=== PATIENT | male | born 1955 | race Caucasian/White ===

== ENCOUNTER 2016-11-30 08:00 | Outpatient (CLI) | payer BC, OTHER ==
[2016-11-30 14:48] LABS: ALBUMIN/GLOBULIN RATIO 1.5 (1.0-2.2); BILIRUBIN,TOTAL 1.1 mg/dL (0.2-1.0); BUN - BLOOD UREA NITROGEN 21 mg/dL (6-20); CALCIUM 9.5 mg/dL (8.5-10.3); CARBON DIOXIDE - CO2 28 mmol/L (21-32); CHLORIDE 103 mmol/L (101-111); CHOL/HDL RATIO 4.5 (<5.0); CHOLESTEROL 186 mg/dL; GFR - MDRD 76 (>89); GLUCOSE 100 mg/dL (70-100); HDL CHOLESTEROL 41 mg/dL; LDL/HDL RATIO 2.9 (<3.6); POTASSIUM 4.2 mmol/L (3.5-5.0); SODIUM 139 mmol/L (135-145); TOTAL PROTEIN 7.3 g/dL (6.7-8.2); TRIGLYCERIDES 141 mg/dL; VLDL CHOLESTEROL 28 mg/dL
== END 2016-11-30 08:01 | disposition home or self-care (01) ==
LOC: LAB.WCP 08:00
PROVIDERS: ATTEND Family Medicine
DX: Z00.00 Encounter for general adult medical examination without abnormal findings (principal); E78.5 Hyperlipidemia, unspecified; Z12.5 Encounter for screening for malignant neoplasm of prostate
CPT/HCPCS: 36415; 80053; 80061; 84153

== ENCOUNTER 2017-12-21 08:10 | Outpatient (CLI) | payer OTHER ==
[2017-12-21 12:32] LABS: BASOPHILS # (AUTO) 0.1 10^3/uL (0.0-0.1); BASOPHILS % (AUTO) 1.1 %; EOSINOPHILS # (AUTO) 0.4 10^3/uL (0.0-0.7); EOSINOPHILS % (AUTO) 6.4 %; HGB - HEMOGLOBIN 15.9 g/dL (14.0-18.0); LYMPHOCYTES # (AUTO) 2.2 10^3/uL (1.5-3.5); LYMPHOCYTES % (AUTO) 39.6 %; MEAN CORPUSCULAR HGB CONC 35.2 g/dL (32.0-36.0); MEAN CORPUSCULAR VOLUME 87.9 fL (80.0-94.0); MEAN PLATELET VOLUME 8.7 fL (7.4-11.4); MONOCYTES # (AUTO) 0.6 10^3/uL (0.0-1.0); MONOCYTES % (AUTO) 10.6 %; NEUTROPHILS # (AUTO) 2.4 10^3/uL (1.5-6.6); NEUTROPHILS % (AUTO) 42.3 %; PLT - PLATELET COUNT 239 10^3/uL (130-450); RED BLOOD COUNT 5.12 10^6/uL (4.70-6.10); RED CELL DISTRIBUTION WIDTH 12.8 % (12.0-15.0); WHITE BLOOD COUNT 5.7 x10^3/uL (4.8-10.8)
[2017-12-21 13:08] LABS: ALBUMIN 4.4 g/dL (3.2-5.5); ALBUMIN/GLOBULIN RATIO 1.5 (1.0-2.2); ALKALINE PHOSPHATASE 71 IU/L (42-121); ALT ALANINE AMINOTRANSFERASE 49 IU/L (10-60); AST ASPARTATE AMINOTRANSFERASE 38 IU/L (10-42); BILIRUBIN,TOTAL 0.9 mg/dL (0.2-1.0); BUN - BLOOD UREA NITROGEN 17 mg/dL (6-20); CALCIUM 9.6 mg/dL (8.5-10.3); CARBON DIOXIDE - CO2 29 mmol/L (21-32); CHLORIDE 100 mmol/L (101-111); CHOL/HDL RATIO 5.1 (<5.0); CHOLESTEROL 199 mg/dL; GFR - MDRD 75 (>89); GLUCOSE 107 mg/dL (70-100); HDL CHOLESTEROL 39 mg/dL; LDL CHOLESTEROL,CALCULATED 113 mg/dL; LDL/HDL RATIO 2.9 (<3.6); SODIUM 137 mmol/L (135-145); TOTAL PROTEIN 7.3 g/dL (6.7-8.2); VLDL CHOLESTEROL 47 mg/dL
== END 2017-12-21 08:11 | disposition home or self-care (01) ==
LOC: LAB.WCP 08:10
PROVIDERS: ATTEND Family Medicine
DX: Z00.00 Encounter for general adult medical examination without abnormal findings (principal); E78.5 Hyperlipidemia, unspecified; Z12.5 Encounter for screening for malignant neoplasm of prostate
CPT/HCPCS: 36415; 80053; 80061; 83721; 84153; 85025

== ENCOUNTER 2018-12-26 08:00 | Outpatient (CLI) | payer OTHER ==
[2018-12-26 13:02] LABS: BASOPHILS # (AUTO) 0.1 10^3/uL (0.0-0.1); BASOPHILS % (AUTO) 0.9 %; EOSINOPHILS # (AUTO) 0.3 10^3/uL (0.0-0.7); EOSINOPHILS % (AUTO) 6.1 %; HGB - HEMOGLOBIN 15.4 g/dL (14.0-18.0); LYMPHOCYTES # (AUTO) 2.1 10^3/uL (1.5-3.5); LYMPHOCYTES % (AUTO) 37.8 %; MEAN CORPUSCULAR HEMOGLOBIN 30.7 pg (27.0-31.0); MEAN CORPUSCULAR HGB CONC 34.1 g/dL (32.0-36.0); MEAN PLATELET VOLUME 10.6 fL (7.4-11.4); MONOCYTES # (AUTO) 0.6 10^3/uL (0.0-1.0); NEUTROPHILS # (AUTO) 2.4 10^3/uL (1.5-6.6); PLT - PLATELET COUNT 243 10^3/uL (130-450); RED BLOOD COUNT 5.01 10^6/uL (4.70-6.10); WHITE BLOOD COUNT 5.5 x10^3/uL (4.8-10.8)
[2018-12-26 13:14] LABS: ALBUMIN 4.2 g/dL (3.2-5.5); ALBUMIN/GLOBULIN RATIO 1.5 (1.0-2.2); ALKALINE PHOSPHATASE 61 IU/L (42-121); ALT ALANINE AMINOTRANSFERASE 41 IU/L (10-60); AST ASPARTATE AMINOTRANSFERASE 32 IU/L (10-42); BILIRUBIN,TOTAL 0.9 mg/dL (0.2-1.0); BUN - BLOOD UREA NITROGEN 15 mg/dL (6-20); CALCIUM 9.2 mg/dL (8.5-10.3); CARBON DIOXIDE - CO2 29 mmol/L (21-32); CHLORIDE 104 mmol/L (101-111); CHOL/HDL RATIO 4.8 (<5.0); CHOLESTEROL 197 mg/dL; GFR - MDRD 75 (>89); GLUCOSE 109 mg/dL (70-100); HDL CHOLESTEROL 41 mg/dL; LDL CHOLESTEROL,CALCULATED 131 mg/dL; LDL/HDL RATIO 3.2 (<3.6); SODIUM 140 mmol/L (135-145); VLDL CHOLESTEROL 25 mg/dL
== END 2018-12-26 08:01 | disposition home or self-care (01) ==
LOC: LAB.WCP 08:00
PROVIDERS: ATTEND Family Medicine
DX: E78.5 Hyperlipidemia, unspecified (principal); Z12.5 Encounter for screening for malignant neoplasm of prostate
CPT/HCPCS: 36415; 80053; 80061; 83721; 84153; 85025

== ENCOUNTER 2019-02-17 09:22 | Day surgery (SDC) | payer OTHER ==
[2019-02-17] MEDS ORDERED: MIDAZOLAM 2 MG/2 ML VIAL IVP ONE (09:23)
[2019-02-17] MEDS ORDERED: fentaNYL 250 MCG/5 ML VIAL IVP ONE (09:23)
[2019-02-17] MEDS ORDERED: LACTATED RINGERS 1,000 ML IV ONE (09:31)
[2019-02-17 15:24] VITALS: BP 118/76
== END 2019-02-17 09:23 | disposition home or self-care (01) ==
LOC: SDS 09:22
PROVIDERS: ATTEND Internal Medicine Gastroenterology
PROC: 0DBN8ZZ Excision of Sigmoid Colon, Via Natural or Artificial Opening Endoscopic (ICD-10-PCS; 2019-02-17)
PROC: 0DBK8ZZ Excision of Ascending Colon, Via Natural or Artificial Opening Endoscopic (ICD-10-PCS; principal; 2019-02-17 12:15)
DX: Z12.11 Encounter for screening for malignant neoplasm of colon (principal); K63.5 Polyp of colon; Z79.82 Long term (current) use of aspirin
CPT/HCPCS: 45380; J3010; J7120

== ENCOUNTER 2019-05-15 09:01 | Outpatient (CLI) | payer BC, OTHER ==
--- NOTE | 2019-05-15 14:35 | XRAY Report ---
Reason: RIGHT ANKLE JOINT PAIN Procedure Date: 05/15/2019 Accession Number: [id number] / [id number] Procedure: WCP - Ankle 3 View RT CPT Code: Final Report FULL RESULT: EXAM: RIGHT ANKLE RADIOGRAPHY EXAM DATE: 05/15/2019 09:01 AM. CLINICAL HISTORY: Chronic right ankle pain. The patient does not recall an episode of trauma. COMPARISON: None. TECHNIQUE: 3 views. FINDINGS: Bones: Normal bone mineralization. No fractures or bone lesions. Plantar calcaneal spur. Joints: Normal. No effusion. No subluxations. The ankle mortise is normally aligned. Soft Tissues: Normal. No soft tissue swelling. IMPRESSION: 1. Plantar calcaneal spur. 2. Normal right ankle radiography. [facility]
== END 2019-05-15 23:59 | disposition home or self-care (01) ==
LOC: DI.WCP 09:01
PROVIDERS: ATTEND Nurse Practitioner Family
DX: M77.31 Calcaneal spur, right foot (principal)

== ENCOUNTER 2020-01-12 09:19 | Outpatient (CLI) | payer BC ==
[2020-01-12 12:18] LABS: BASOPHILS # (AUTO) 0.1 10^3/uL (0.0-0.1); BASOPHILS % (AUTO) 0.8 %; EOSINOPHILS # (AUTO) 0.4 10^3/uL (0.0-0.7); EOSINOPHILS % (AUTO) 7.3 %; HGB - HEMOGLOBIN 14.7 g/dL (14.0-18.0); LYMPHOCYTES # (AUTO) 2.4 10^3/uL (1.5-3.5); LYMPHOCYTES % (AUTO) 39.2 %; MEAN CORPUSCULAR HGB CONC 34.4 g/dL (32.0-36.0); MEAN CORPUSCULAR VOLUME 90.1 fL (80.0-94.0); MEAN PLATELET VOLUME 10.6 fL (7.4-11.4); MONOCYTES # (AUTO) 0.7 10^3/uL (0.0-1.0); MONOCYTES % (AUTO) 11.5 %; NEUTROPHILS # (AUTO) 2.5 10^3/uL (1.5-6.6); PLT - PLATELET COUNT 231 10^3/uL (130-450); RED BLOOD COUNT 4.74 10^6/uL (4.70-6.10); RED CELL DISTRIBUTION WIDTH 11.9 % (12.0-15.0)
[2020-01-12 12:49] LABS: ALBUMIN 4.1 g/dL (3.2-5.5); ALBUMIN/GLOBULIN RATIO 1.4 (1.0-2.2); ALKALINE PHOSPHATASE 57 IU/L (42-121); ALT ALANINE AMINOTRANSFERASE 44 IU/L (10-60); AST ASPARTATE AMINOTRANSFERASE 34 IU/L (10-42); BILIRUBIN,TOTAL 0.9 mg/dL (0.2-1.0); BUN - BLOOD UREA NITROGEN 27 mg/dL (6-20); CALCIUM 9.2 mg/dL (8.5-10.3); CARBON DIOXIDE - CO2 25 mmol/L (21-32); CHLORIDE 108 mmol/L (101-111); CHOL/HDL RATIO 4.9 (<5.0); CHOLESTEROL 180 mg/dL; CREATININE 0.9 mg/dL (0.6-1.2); GLUCOSE 110 mg/dL (70-100); HDL CHOLESTEROL 37 mg/dL; LDL CHOLESTEROL,CALCULATED 112 mg/dL; SODIUM 140 mmol/L (135-145); TOTAL PROTEIN 7.1 g/dL (6.7-8.2); VLDL CHOLESTEROL 31 mg/dL
== END 2020-01-12 23:59 | disposition home or self-care (01) ==
LOC: LAB.WCP 09:19
PROVIDERS: ATTEND Family Medicine
DX: I10 Essential (primary) hypertension (principal); E78.5 Hyperlipidemia, unspecified; Z12.5 Encounter for screening for malignant neoplasm of prostate
CPT/HCPCS: 36415; 80053; 80061; 83721; 84153; 84443; 85025

== ENCOUNTER 2020-07-12 07:00 | Outpatient (CLI) | payer BC ==
--- NOTE | 2020-07-12 15:37 | XRAY Report ---
PROCEDURE: Knee 3 View RT INDICATIONS: SPRAIN OF UNSPECIFIED SITE OF R KNEE TECHNIQUE: 3 views of the right knee(s) were acquired. COMPARISON: None. FINDINGS: Bones: No fractures or dislocations. No suspicious bony lesions. Moderate medial and mild to moder ate patellofemoral compartment narrowing. Minimal periarticular ossicles are present. No erosions. Soft tissues: Moderate joint effusion. No suspicious soft tissue calcifications. IMPRESSION: Medial and patellofemoral arthritic change. Reviewed by: Luciana Tyler MD on 07/12/2020 3:36 PM PDT Approved by: Luciana Tyler MD on 07/12/2020 3:36 PM PDT Station ID: [id number]
== END 2020-07-12 23:59 | disposition home or self-care (01) ==
LOC: DI.N 07:00
PROVIDERS: ATTEND Nurse Practitioner
DX: M17.11 Unilateral primary osteoarthritis, right knee (principal)

== ENCOUNTER 2021-01-07 08:00 | Outpatient (CLI) | payer BC ==
[2021-01-07 12:21] LABS: BASOPHILS # (AUTO) 0.1 10^3/uL (0.0-0.1); BASOPHILS % (AUTO) 0.8 %; EOSINOPHILS # (AUTO) 0.3 10^3/uL (0.0-0.7); EOSINOPHILS % (AUTO) 4.6 %; HCT - HEMATOCRIT 43.5 % (42.0-52.0); HGB - HEMOGLOBIN 14.5 g/dL (14.0-18.0); LYMPHOCYTES # (AUTO) 2.3 10^3/uL (1.5-3.5); LYMPHOCYTES % (AUTO) 39.2 %; MEAN CORPUSCULAR HEMOGLOBIN 30.5 pg (27.0-31.0); MEAN CORPUSCULAR HGB CONC 33.3 g/dL (32.0-36.0); MEAN CORPUSCULAR VOLUME 91.4 fL (80.0-94.0); MEAN PLATELET VOLUME 10.4 fL (7.4-11.4); MONOCYTES # (AUTO) 0.7 10^3/uL (0.0-1.0); NEUTROPHILS # (AUTO) 2.5 10^3/uL (1.5-6.6); NEUTROPHILS % (AUTO) 43.1 %; PLT - PLATELET COUNT 247 10^3/uL (130-450); RED BLOOD COUNT 4.76 10^6/uL (4.70-6.10); RED CELL DISTRIBUTION WIDTH 12.1 % (12.0-15.0); WHITE BLOOD COUNT 5.9 x10^3/uL (4.8-10.8)
[2021-01-07 13:34] LABS: THYROID STIMULATING HORMONE 3.69 uIU/mL (0.34-5.60)
[2021-01-07 13:54] LABS: ALBUMIN 4.6 g/dL (3.2-5.5); ALBUMIN/GLOBULIN RATIO 1.6 (1.0-2.2); ALKALINE PHOSPHATASE 58 IU/L (42-121); ALT ALANINE AMINOTRANSFERASE 28 IU/L (10-60); AST ASPARTATE AMINOTRANSFERASE 27 IU/L (10-42); BILIRUBIN,TOTAL 0.9 mg/dL (0.2-1.0); BUN - BLOOD UREA NITROGEN 30 mg/dL (6-20); CALCIUM 9.8 mg/dL (8.5-10.3); CARBON DIOXIDE - CO2 27 mmol/L (21-32); CHLORIDE 105 mmol/L (101-111); CHOL/HDL RATIO 4.3 (<5.0); CHOLESTEROL 198 mg/dL; GFR - MDRD 75 (>89); GLUCOSE 109 mg/dL (70-100); HDL CHOLESTEROL 46 mg/dL; LDL CHOLESTEROL,CALCULATED 136 mg/dL; POTASSIUM 4.7 mmol/L (3.5-5.0); SODIUM 142 mmol/L (135-145); TOTAL PROTEIN 7.5 g/dL (6.7-8.2); TRIGLYCERIDES 82 mg/dL; VLDL CHOLESTEROL 16 mg/dL
== END 2021-01-07 23:59 | disposition home or self-care (01) ==
LOC: LAB.WCP 08:00
PROVIDERS: ATTEND Family Medicine
DX: I10 Essential (primary) hypertension (principal); E78.5 Hyperlipidemia, unspecified; Z12.5 Encounter for screening for malignant neoplasm of prostate
CPT/HCPCS: 36415; 80053; 80061; 83721; 84153; 84443; 85025

== ENCOUNTER 2021-08-20 08:00 | Outpatient (CLI) | payer BC | END 2021-08-20 23:59 | disposition home or self-care (01) | LOC: LAB.S 08:00 | PROVIDERS: ATTEND Emergency Medicine | DX: M70.22 Olecranon bursitis, left elbow (principal) | CPT/HCPCS: 87070; 87181; 87205 ==

== ENCOUNTER 2022-01-13 08:27 | Outpatient (CLI) | payer OTHER ==
[2022-01-13 12:28] LABS: BASOPHILS # (AUTO) 0.1 10^3/uL (0.0-0.1); BASOPHILS % (AUTO) 0.9 %; EOSINOPHILS # (AUTO) 0.7 10^3/uL (0.0-0.7); EOSINOPHILS % (AUTO) 8.6 %; HCT - HEMATOCRIT 44.7 % (42.0-52.0); LYMPHOCYTES # (AUTO) 2.6 10^3/uL (1.5-3.5); LYMPHOCYTES % (AUTO) 33.5 %; MEAN CORPUSCULAR HEMOGLOBIN 29.8 pg (27.0-31.0); MEAN CORPUSCULAR HGB CONC 33.6 g/dL (32.0-36.0); MEAN CORPUSCULAR VOLUME 88.7 fL (80.0-94.0); MEAN PLATELET VOLUME 10.2 fL (7.4-11.4); MONOCYTES # (AUTO) 0.9 10^3/uL (0.0-1.0); MONOCYTES % (AUTO) 11.9 %; NEUTROPHILS # (AUTO) 3.4 10^3/uL (1.5-6.6); NEUTROPHILS % (AUTO) 44.8 %; PLT - PLATELET COUNT 293 10^3/uL (130-450); RED BLOOD COUNT 5.04 10^6/uL (4.70-6.10); WHITE BLOOD COUNT 7.7 x10^3/uL (4.8-10.8)
[2022-01-13 13:04] LABS: ALBUMIN 4.2 g/dL (3.2-5.5); ALBUMIN/GLOBULIN RATIO 1.4 (1.0-2.2); ALKALINE PHOSPHATASE 63 IU/L (42-121); ALT ALANINE AMINOTRANSFERASE 34 IU/L (10-60); AST ASPARTATE AMINOTRANSFERASE 27 IU/L (10-42); BILIRUBIN,TOTAL 0.7 mg/dL (0.2-1.0); BUN - BLOOD UREA NITROGEN 22 mg/dL (6-20); CALCIUM 9.7 mg/dL (8.5-10.3); CARBON DIOXIDE - CO2 28 mmol/L (21-32); CHLORIDE 104 mmol/L (101-111); CHOLESTEROL 173 mg/dL; GFR - MDRD 74 (>89); GLUCOSE 110 mg/dL (70-100); HDL CHOLESTEROL 43 mg/dL; LDL CHOLESTEROL,CALCULATED 109 mg/dL; LDL/HDL RATIO 2.5 (<3.6); POTASSIUM 4.5 mmol/L (3.5-5.0); SODIUM 140 mmol/L (135-145); TOTAL PROTEIN 7.1 g/dL (6.7-8.2); TRIGLYCERIDES 103 mg/dL; VLDL CHOLESTEROL 21 mg/dL
[2022-01-13 13:11] LABS: ESTIMATED AVERAGE GLUCOSE 123 mg/dL (70-100); HEMOGLOBIN A1c% 5.9 % (4.27-6.07)
== END 2022-01-13 08:28 | disposition home or self-care (01) ==
LOC: LAB.N 08:27
PROVIDERS: ATTEND Nurse Practitioner Family
DX: I10 Essential (primary) hypertension (principal); Z12.5 Encounter for screening for malignant neoplasm of prostate; E78.5 Hyperlipidemia, unspecified; R73.01 Impaired fasting glucose
CPT/HCPCS: 36415; 80053; 80061; 83036; 83721; 84153; 85025

== ENCOUNTER 2022-02-09 08:24 | Outpatient (CLI) | payer OTHER ==
[2022-02-09 12:57] LABS: PSA TOTAL 1.701 ng/mL (0.000-2.000)
== END 2022-02-09 08:25 | disposition home or self-care (01) ==
LOC: LAB.N 08:24
PROVIDERS: ATTEND Physician Assistant
DX: R97.20 Elevated prostate specific antigen [PSA] (principal)
CPT/HCPCS: 36415; 84153

== ENCOUNTER 2022-05-06 12:42 | Outpatient (CLI) | payer OTHER ==
--- NOTE | 2022-05-06 12:38 | XRAY Report ---
PROCEDURE: Ribs w/PA Chest LT INDICATIONS: LEFT SIDED RIB PAIN TECHNIQUE: 3 views of the left ribs were acquired, along with a single view chest. COMPARISON: None. FINDINGS: Surgical changes and devices: None. Bones and chest wall: No fractures or dislocations. No suspicious bony lesions. Overlying soft tis sues appear unremarkable. Lungs and pleura: No pleural effusions or pneumothorax. Lungs appear clear. Mediastinum: Mediastinal contours appear normal. Heart size is normal. IMPRESSION: No displaced left sided rib fracture. Reviewed by: Barney Weiss MD on 05/06/2022 12:37 PM PST Approved by: Barney Weiss MD on 05/06/2022 12:37 PM PST Station ID: [id number]
== END 2022-05-06 12:43 | disposition home or self-care (01) ==
LOC: DI.S 12:42
PROVIDERS: ATTEND Registered Nurse
DX: R07.81 Pleurodynia (principal)

== ENCOUNTER 2022-12-29 09:32 | Outpatient (CLI) | payer OTHER ==
[2022-12-29 14:24] LABS: BASOPHILS # (AUTO) 0.1 10^3/uL (0.0-0.1); BASOPHILS % (AUTO) 0.7 %; EOSINOPHILS # (AUTO) 0.3 10^3/uL (0.0-0.7); EOSINOPHILS % (AUTO) 3.9 %; HCT - HEMATOCRIT 43.6 % (42.0-52.0); LYMPHOCYTES # (AUTO) 2.6 10^3/uL (1.5-3.5); MEAN CORPUSCULAR HEMOGLOBIN 30.7 pg (27.0-31.0); MEAN CORPUSCULAR HGB CONC 34.4 g/dL (32.0-36.0); MEAN CORPUSCULAR VOLUME 89.2 fL (80.0-94.0); MEAN PLATELET VOLUME 10.1 fL (7.4-11.4); MONOCYTES # (AUTO) 0.7 10^3/uL (0.0-1.0); MONOCYTES % (AUTO) 9.8 %; NEUTROPHILS # (AUTO) 3.8 10^3/uL (1.5-6.6); NEUTROPHILS % (AUTO) 50.2 %; PLT - PLATELET COUNT 303 10^3/uL (130-450); RED BLOOD COUNT 4.89 10^6/uL (4.70-6.10); WHITE BLOOD COUNT 7.5 x10^3/uL (4.8-10.8)
[2022-12-29 16:41] LABS: ALBUMIN 4.4 g/dL (3.2-5.5); ALBUMIN/GLOBULIN RATIO 1.6 (1.0-2.2); ALKALINE PHOSPHATASE 64 IU/L (42-121); ALT ALANINE AMINOTRANSFERASE 32 IU/L (10-60); AST ASPARTATE AMINOTRANSFERASE 27 IU/L (10-42); BILIRUBIN,TOTAL 0.8 mg/dL (0.2-1.0); BUN - BLOOD UREA NITROGEN 23 mg/dL (6-20); CALCIUM 9.8 mg/dL (8.5-10.3); CARBON DIOXIDE - CO2 29 mmol/L (21-32); CHLORIDE 103 mmol/L (101-111); CHOL/HDL RATIO 4.7 (<5.0); CHOLESTEROL 191 mg/dL; CREATININE 1.1 mg/dL (0.6-1.3); GFR - MDRD 66 (>89); GLUCOSE 100 mg/dL (74-104); HDL CHOLESTEROL 41 mg/dL; LDL CHOLESTEROL,CALCULATED 113 mg/dL; LDL/HDL RATIO 2.8 (<3.6); POTASSIUM 4.3 mmol/L (3.5-4.5); SODIUM 139 mmol/L (135-145); TOTAL PROTEIN 7.2 g/dL (6.4-8.9); TRIGLYCERIDES 187 mg/dL (48-352); VLDL CHOLESTEROL 37 mg/dL
== END 2022-12-29 09:33 | disposition home or self-care (01) ==
LOC: LAB.S 09:32
PROVIDERS: ATTEND Physician Assistant
DX: I10 Essential (primary) hypertension (principal); R97.20 Elevated prostate specific antigen [PSA]; Z12.5 Encounter for screening for malignant neoplasm of prostate; E78.5 Hyperlipidemia, unspecified
CPT/HCPCS: 36415; 80053; 80061; 83721; 84153; 84439; 84443; 85025

== ENCOUNTER 2023-04-12 10:07 | Day surgery (SDC) | payer OTHER ==
[2023-04-12] MEDS ORDERED: LACTATED RINGERS 1,000 ML IV ONE ×2 (10:20→13:43)
--- NOTE | 2023-04-12 10:31 | ANESTHESIA ---
Pre-Anesthesia VS, & Labs Height: 5 ft 10 in Weight (kg): 92 kg Body Mass Index: 29.0 BMI Classification: Overweight - NPO >8 hours - Lab Results Lab results reviewed: Yes <Jose Aragon - Last Filed: 04/12/23 10:29> - Diagnosis B inguinal hernias, umbilical hernia (Jose Aragon) - Procedure Laparoscopic Bilat inguinal hernia repair, open umbilical hernia (Jose Aragon) Vital Signs: Temp Pulse Resp BP Pulse Ox O2 Flow Rate 36.3 C L 70 13 132/77 H 99 04/12/23 10:20 04/12/23 10:20 04/12/23 10:20 04/12/23 10:20 04/12/23 10:20 Home Medications and Allergies <Jose Aragon - Last Filed: 04/12/23 10:29> <Shaylee Dawson - Last Filed: 04/12/23 11:03> Home Medications: Ambulatory Orders Cholecalciferol (Vitamin D3) [Vitamin D3] 1,000 unit PO DAILY 04/06/23 Clobetasol 0.05% Oint [Temovate 0.05% Oint] 1 applic TOP TID PRN 04/06/23 Lisinopril [Zestril] 10 mg PO DAILY 04/06/23 [place]-3S/Dha/Epa/Fish Oil [Fish Oil 1,200 mg Softgel] 1 each PO DAILY 04/06/23 Prostate Control 29-97-14-100 1 tab PO DAILY 04/06/23 Red Yeast Rice 1 cap PO BID 04/06/23 Sildenafil Citrate 50 mg PO PRN PRN 04/06/23 Ubidecarenone [Co Q-10] 60 mg PO DAILY 04/06/23 Active Medications Atropine Sulfate (Atropine Abboject 1 Mg/10 Ml Syringe) 0.5 mg IVP Q5M PRN PRN Reason: Bradycardia Stop: 04/13/23 10:43 Ephedrine Sulfate (Ephedrine 50 Mg/Ml Vial) 10 mg IVP Q5M PRN PRN Reason: HYPOTENSION Stop: 04/13/23 10:43 Fentanyl (Fentanyl 100 Mcg/2 Ml Vial) 25 - 50 mcg IVP Q5M PRN PRN Reason: BREAKTHROUGH PAIN (2nd Choice) Stop: 04/13/23 10:43 Hydromorphone HCl (Hydromorphone 0.5 Mg/0.5 Ml Syringe) 0.2 - 0.6 mg IVP Q5M PRN PRN Reason: PAIN (First Choice) Stop: 04/13/23 10:43 Lactated Ringer's (Lr) 1,000 mls @ 100 mls/hr IV .Q10H AMOL Stop: 04/12/23 20:59 Metoclopramide HCl (Metoclopramide 10 Mg/2 Ml Vial) 10 mg IVP Q6HR PRN PRN Reason: N/V not relieved by Zofran Morphine Sulfate (Morphine 2 Mg/Ml Carpuject) 2 - 4 mg IVP Q5M PRN PRN Reason: PAIN (3rd Choice) Stop: 04/13/23 10:43 Naloxone HCl (Naloxone 0.4 Mg/Ml Vial) 0.1 mg IVP Q2M PRN PRN Reason: RESP RATE <8 Stop: 04/13/23 10:43 Ondansetron HCl (Ondansetron 4 Mg/2 Ml Vial) 4 mg IVP ONCE PRN PRN Reason: N/V (First Choice) Stop: 04/13/23 10:43 Cholecalciferol (Vitamin D3) [Vitamin D3] 1,000 unit PO DAILY 04/06/23 Clobetasol 0.05% Oint [Temovate 0.05% Oint] 1 applic TOP TID PRN 04/06/23 Lisinopril [Zestril] 10 mg PO DAILY 04/06/23 [place]-3S/Dha/Epa/Fish Oil [Fish Oil 1,200 mg Softgel] 1 each PO DAILY 04/06/23 Prostate Control 17-26-55-100 1 tab PO DAILY 04/06/23 Red Yeast Rice 1 cap PO BID 04/06/23 Sildenafil Citrate 50 mg PO PRN PRN 04/06/23 Ubidecarenone [Co Q-10] 60 mg PO DAILY 04/06/23 Allergies/Adverse Reactions: Allergies Allergy/AdvReac Type Severity Reaction Status Date / Time No Known Drug Allergies Allergy Verified 02/17/19 09:51 Anes History & Medical History - Medical History Cardiovascular: reports: Hypertension, High cholesterol Pulmonary: reports: None Gastrointestinal: reports: None Urinary: reports: Benign prostate hypertrophy Musculoskeletal: reports: None Endocrine/Autoimmune: reports: None Skin: reports: Psoriasis - Surgical History General: reports: Colonoscopy Eyes Ears Nose Throat (EENT): reports: Tonsil/Adenoidectomy <Jose Aragon P - Last Filed: 04/12/23 10:29> - Anesthetic History Anesthesia Complications: reports: No previous complications <Shaylee Dawson E - Last Filed: 04/12/23 11:03> Exam General: Alert, Oriented x3, Cooperative <Jose Aragon P - Last Filed: 04/12/23 10:29> General: Oriented x3, Cooperative Dental: WNL Neck Mobility: Normal Mallampati classification: III Thyromental Distance: greater than 6 cm Respiratory: Lungs clear Cardiovascular: Regular rate <Shaylee Dawson E - Last Filed: 04/12/23 11:03> Plan Anesthesia Type: General Consent for Procedure(s) Verified and Reviewed: Yes Code Status: Attempt Resuscitation ASA classification: 2-Mild systemic disease Is this case an emergency?: No <Jose Aragon P - Last Filed: 04/12/23 10:29> Anesthesia Type: General Consent for Procedure(s) Verified and Reviewed: Yes Code Status: Attempt Resuscitation ASA classification: 2-Mild systemic disease Is this case an emergency?: No <Shaylee Dawson E - Last Filed: 04/12/23 11:03>
[2023-04-12] MEDS ORDERED: ceFAZolin 2 GM VIAL ONE (10:34)
[2023-04-12] MEDS ORDERED: MIDAZOLAM 2 MG/2 ML VIAL ONE (10:37)
[2023-04-12] MEDS ORDERED: LIDOCAINE-PF 2% 10 ML AMP SUBQ ONE (10:38)
[2023-04-12] MEDS ORDERED: fentaNYL 100 MCG/2 ML VIAL ONE ×3 (10:38→13:30)
[2023-04-12] MEDS ORDERED: ROCURONIUM 50 MG/5 ML VIAL ONE ×2 (10:39→12:08)
[2023-04-12] MEDS ORDERED: BUPIVACAINE 0.25% PF 30 ML VIAL ONE ×2 (10:39→12:42)
[2023-04-12] MEDS ORDERED: PROPOFOL 200 MG/20 ML VIAL IVP ONE (10:39)
[2023-04-12] MEDS ORDERED: ATROPINE ABBOJECT 1 MG/10 ML SYRINGE IVP PRN (10:43)
[2023-04-12] MEDS ORDERED: NALOXONE 0.4 MG/ML VIAL IVP PRN (10:43)
[2023-04-12] MEDS ORDERED: ePHEDrine 50 MG/ML VIAL IVP PRN (10:43)
[2023-04-12] MEDS ORDERED: HYDROmorphone 0.5 MG/0.5 ML SYRINGE IVP PRN ×2 (10:43→13:53)
[2023-04-12] MEDS ORDERED: METOCLOPRAMIDE 10 MG/2 ML VIAL IVP PRN (10:43)
[2023-04-12] MEDS ORDERED: fentaNYL 100 MCG/2 ML VIAL IVP PRN (10:43)
[2023-04-12] MEDS ORDERED: ONDANSETRON 4 MG/2 ML VIAL IVP PRN (10:43)
[2023-04-12] MEDS ORDERED: MORPHINE 2 MG/ML CARPUJECT IVP PRN (10:43)
--- NOTE | 2023-04-12 10:59 | HISTORY & PHYSICAL EXAMINATION ---
Chief Complaint - Chief Complaint Chief Complaint: painful bulge umbilicus and left groin History of Present Illness - History Obtained From Records Reviewed: yes History obtained from: pt Exam Limitations: none - History of Present Illness HPI Comment/Other: large symptomatic hernia umbilicus and left inguinal. no right inguinal problems History - Past Medical History Cardiovascular: reports: Hypertension, High cholesterol Respiratory: reports: None Endocrine/Autoimmune: reports: None GI: reports: None : reports: Benign prostate hypertrophy HEENT: reports: Chronic vision loss Psych: reports: None Musculoskeletal: reports: None Derm: reports: Psoriasis MRSA Hx?: No - Past Surgical History General: reports: Colonoscopy HEENT: reports: Tonsil/Adenoidectomy Meds/Allgy - Home Medications Home Medications: Ambulatory Orders Medication Instructions Recorded Confirmed Cholecalciferol (Vitamin D3) 1,000 unit PO DAILY 04/06/23 04/06/23 [Vitamin D3] Clobetasol 0.05% Oint [Temovate 1 applic TOP TID PRN 04/06/23 04/06/23 0.05% Oint] Lisinopril [Zestril] 10 mg PO DAILY 04/06/23 04/06/23 [place]-3S/Dha/Epa/Fish Oil [Fish 1 each PO DAILY 04/06/23 04/06/23 Oil 1,200 mg Softgel] Prostate Control 66-37-32-100 1 tab PO DAILY 04/06/23 Red Yeast Rice 1 cap PO BID 04/06/23 04/06/23 Sildenafil Citrate 50 mg PO PRN PRN 04/06/23 04/06/23 Ubidecarenone [Co Q-10] 60 mg PO DAILY 04/06/23 04/06/23 - Allergies Allergies/Adverse Reactions: Allergies Allergy/AdvReac Type Severity Reaction Status Date / Time No Known Drug Allergies Allergy Verified 02/17/19 09:51 Review of Systems - Other Findings Other Findings: 10 pt ros as above otherwise unremarkable Exam - Vital Signs Vital Signs: Vital Signs x48h Temp Pulse Resp BP Pulse Ox 04/12/23 10:20 36.3 C L 70 13 132/77 H 99 - Physical Exam General Appearance: positive: No acute distress, Alert Eyes Bilateral: positive: PERRL, EOMI Neck: positive: No JVD Respiratory: positive: No respiratory distress Cardiovascular: positive: Regular rate & rhythm Abdomen: positive: Non-tender, Other (umbilical hernia and left inguinal hernia present) Neurologic/Psychiatric: positive: Oriented x3 Conclusion/Plan - Problem List (1) Inguinal hernia Conclusion/Plan: symptomatic left inguinal hernia and umbilical hernia. plan repair. parq held and consent obtained - Lab Results Lab results reviewed: Yes
[2023-04-12] MEDS ORDERED: LACTATED RINGERS 1,000 ML IV SCH (11:00)
[2023-04-12] MEDS ORDERED: ONDANSETRON 4 MG/2 ML VIAL ONE (11:21)
[2023-04-12] MEDS ORDERED: DEXAMETHASONE 4 MG/ML VIAL ONE (11:21)
[2023-04-12] MEDS ORDERED: ePHEDrine 50 MG/ML VIAL IVP ONE (11:31)
[2023-04-12] MEDS ORDERED: PHENYLEPHRINE HCL 0.5 MG/5 ML AMPULE ONE (11:36)
[2023-04-12] MEDS ORDERED: GLYCOPYRROLATE 1 MG/5 ML VIAL ONE (11:44)
[2023-04-12] MEDS ORDERED: BUPIVACAINE 0.25% PF 30 ML VIAL SUBQ ONE ×3 (11:52)
[2023-04-12] MEDS ORDERED: ACETAMINOPHEN 1,000 MG/100 ML 1,000 MG/100 ML BAG IV ONE (12:48)
[2023-04-12] MEDS ORDERED: SUGAMMADEX 200 MG/2 ML VIAL IVP ONE (13:19)
[2023-04-12] MEDS ORDERED: traMADol 50 MG TABLET PO PRN (14:00)
--- NOTE | 2023-04-12 14:05 | OPERATIVE REPORT ---
Operative Report - General Procedure Date: 04/12/23 Planned Procedure: laparoscopic left inguinal hernia repair and umbilical hernia repair Pre-Op Diagnosis: left inguinal hernia and umbilical hernia Procedure Performed: laparoscopic inguinal hernia repair and repair 2.5 cm umbilical hernia with mesh Post Op Diagnosis: same. direct inguinal hernia - Procedure Note Primary Surgeon: helen davis Anesthesia Technique: General ET tube, Local Pathology: none Estimated Blood Loss (mL): 0 Indications: symptomatic hernias Findings: as above Complications: none - Other Other Information/Narrative: The patient was properly identified brought to the operating room and placed in supine position. Sequential compression devices were placed. General endotracheal anesthesia was induced. Abbott catheter was placed. He was prepped and draped in a sterile fashion and given preoperative antibiotics. A curvilinear infraumbilical incision was made. Dissection proceeded down to the fascia. The fascia was incised just right lateral of midline. The preperitoneal space was carefully developed with finger dissection. A Powell trocar was placed and secured with 3 interrupted 0 Vicryl sutures. A 30 degree scope was used. The preperitoneal space was further developed with use of the scope. CO2 was insufflated to a pressure of 12. An midline two 5 mm trocars were placed between the umbilicus and the pubis. The left inguinal hernia was approached. He had a large direct defect. Peritoneum was further pulled away from the cord structures. He did not have a true indirect inguinal hernia. A significant amount of preperitoneal adipose tissue was removed from the internal ring. Given the very large direct inguinal hernia a extra-large Bard preformed mesh was placed. The mesh was lightly secured with a tacker. Capture device was used to tack the mesh to the pubic tubercle Gael's ligament and anteriorly underneath the rectus muscle. The mesh lay in good position. There were no apparent complications. Trocars were removed and CO2 evacuated. Fascia at the infraumbilical site was closed with a total of 4 interrupted 0 Vicryl sutures. The umbilical hernia was then addressed. Umbilical skin was excised away from the hernia sac. Subcutaneous tissue was mobilized back away from the fascial defect edge sharply. The peritoneum was released from the hernia defect edge with careful use of cutting current cautery. A preperitoneal space was again developed. Approximately 1-1/2 x 2-1/2 inch tall polypropylene mesh was placed preperitoneal and secured with 9 interrupted 0 Tycron sutures. The fascia was closed over the mesh with an additional 0 Tycron sutures. Subcutaneous tissue was closed with interrupted 2-0 Vicryl suture. Umbilical skin was tacked back down to fascia with interrupted 2-0 Vicryl. Buried interrupted subdermal 3-0 Vicryl sutures were then placed. Skin was closed with buried interrupted and running 4-0 Monocryl subcuticular suture. Abbott catheter was removed. Was awakened and brought to recovery in good condition.
--- NOTE | 2023-04-12 14:30 | ANESTHESIA POST OP EVALUATION ---
Anesthesia Post Eval - Post Anesthesia Eval Vitals: Last Vital Signs Temp 36.3 C L 04/12/23 14:22 Pulse 92 04/12/23 14:22 Resp 15 04/12/23 14:22 BP 121/86 H 04/12/23 14:22 Pulse Ox 95 04/12/23 14:22 O2 Flow Rate CV Function Including HR & BP: Stable Pain Control: Satisfactory Nausea & Vomiting: Negative Mental Status: Baseline Respiratory Status: Airway Patent Hydration Status: Satisfactory Anesthesia Complications: None
[2023-04-12 14:38] VITALS: O2SAT 97
[2023-04-12] MEDS ORDERED: traMADol 50 MG TABLET PO ONE (14:41)
[2023-04-12 14:56] VITALS: BP 141/74
== END 2023-04-12 10:08 | disposition home or self-care (01) ==
LOC: SDS 10:07
PROVIDERS: ATTEND Surgery
DX: K40.90 Unilateral inguinal hernia, without obstruction or gangrene, not specified as recurrent (principal); K42.9 Umbilical hernia without obstruction or gangrene; I10 Essential (primary) hypertension
CPT/HCPCS: 49591; 49650; A9270; C1781; J0131; J2372; J7120